=== PATIENT | male | born 1970 | race African-American/Black ===

== ENCOUNTER 2017-12-26 17:40 | Emergency (ER) | payer MEDICARE ==
[2017-12-26] MEDS ORDERED: Ketorolac Tromethamine 60 MG/2 ML VIAL ONE (19:14)
== END 2017-12-26 19:47 | disposition home or self-care (01) ==
LOC: ERS 17:40
DX: M10.9 Gout, unspecified (principal)
CPT/HCPCS: 96372; J1885